=== PATIENT | male | born 1995 | race Two or more races ===

== ENCOUNTER 2019-01-04 16:19 | Emergency (ER) | payer BC ==
[~2019-01-04] VITALS: Ht 172.7 cm; Wt 90.0 kg
[2019-01-04 19:25] LABS: BASOPHILS % 0.2 % (0.0-2.0); EOSINOPHILS % 0.2 % (0.0-5.0); HEMATOCRIT. 41.7 % (42.0-52.0); HEMOGLOBIN. 14.5 g/dL (14.0-18.0); LYMPHOCYTES % 16.3 % (20.0-50.0); MEAN CORPUSCULAR HEMOGLOBIN 30.1 pg (28.0-32.0); MEAN CORPUSCULAR VOLUME 86.1 fL (80.0-94.0); MEAN PLATELET VOLUME 8.6 fl (7.4-10.4); MONOCYTES % 4.2 % (2.0-8.0); NEUTROPHILS % 79.1 % (40.0-76.0); PLATELET 218 x1000/uL (130-400); RED BLOOD CELL COUNT 4.84 mill/uL (4.7-6.1); RED CELL DISTRIBUTION WIDTH 12.5 % (11.6-14.6)
[2019-01-04 19:29] LABS: CHLORIDE 104 mEq/L (98-107)
[2019-01-05] MEDS ORDERED: LORAZEPAM 1MG TABLET PO ONE (00:15)
[2019-01-05] MEDS ORDERED: IBUPROFEN 600MG TABLET PO ONE (00:15)
[2019-01-05 01:58] VITALS: BP 119/58
== END 2019-01-05 01:59 | disposition home or self-care (01) ==
LOC: ER 16:19
DX: R07.89 Other chest pain (principal); F41.9 Anxiety disorder, unspecified
CPT/HCPCS: 36415; 71045; 84484; 85379; 93005; 99284